=== PATIENT | male | born 1940 | race Caucasian/White ===

== ENCOUNTER 2023-12-07 16:39 | Emergency (ER) | payer MEDICARE, OTHER ==
[~2023-12-07] VITALS: Ht 177.8 cm; Wt 107.5 kg
[2023-12-07 17:35] VITALS: PULSE 71; RESP 16; TEMP 98.6; O2SAT 99
[2023-12-07] MEDS ORDERED: DOXYCYCLINE HY100 MG PO (18:12)
== END 2023-12-07 18:17 | disposition home or self-care (01) ==
LOC: ER 16:50
DX: L03.116 Cellulitis of left lower limb (principal); I48.91 Unspecified atrial fibrillation; D64.9 Anemia, unspecified; E78.5 Hyperlipidemia, unspecified; Z86.73 Personal history of transient ischemic attack (TIA), and cerebral infarction without residual deficits
CPT/HCPCS: 99282